=== PATIENT | female | born 1970 | race American Indian/Alaskan Native ===

== ENCOUNTER 2017-04-25 06:29 | Day surgery (SDC) | payer BC ==
[~2017-04-25 06:29] MED LIST: NACL 0.9% IR ONE
[2017-04-25] MEDS ORDERED: DILAUDID ONE (07:32)
[2017-04-25] MEDS ORDERED: XYLOCAINE MPF 2% ONE (07:32)
[2017-04-25] MEDS ORDERED: DIPRIVAN 10 MG/ML IV ONE (07:32)
--- NOTE | 2017-04-25 08:05 | Discharge Summary ---
Short Stay Discharge Plan Activity: no restrictions Weight Bearing Status: Full Weight Bearing Diet: regular Wound: remove dressing (72hrs.) Follow up with: PRIMARY CARE, [Primary Care Provider] - 7 Days
[2017-04-25] MEDS ORDERED: PEPCID IV NR (08:07)
[2017-04-25] MEDS ORDERED: VERSED IV NR (08:07)
[2017-04-25] MEDS ORDERED: LACTATED RINGERS 1,000 ML IV SCH (08:07)
--- NOTE | 2017-04-25 08:07 | Short Stay Summary ---
Short Stay Documentation Date of service: 04/25/17 - Allergies and Medications Current Medications: Allergies No Known Allergies Allergy (Unverified 04/19/17 14:25) Home Medications Medication Instructions Recorded Confirmed Last Taken Type No Known Home Medications [No 04/19/17 04/19/17 Unknown History Reported Home Medications] - Brief post op/procedure progress note Date of procedure: 04/25/17 Pre-op diagnosis: s/p LT Ear Amputation and Retroauricular Tube Flap Reconstruction Post-op diagnosis: same Procedure: Division and Inset of LT Ear Retroauricular Tube Graft Anesthesia: GETA Surgeon: KACI JIMENEZ JR Estimated blood loss: minimal Specimen disposition: to lab Condition: stable - Disposition Condition at discharge: Good Disposition: DC-01 TO HOME OR SELFCARE Short Stay Discharge Plan Follow up with: PRIMARY CARE, [Primary Care Provider] - 7 Days
--- NOTE | 2017-04-25 08:07 | Anesthesia Consultation ---
Anesthesia Consult and Med Hx Date of service: 04/25/17 - Airway Anesthetic Teeth Evaluation: Good ROM Head & Neck: Adequate Mental/Hyoid Distance: Adequate Mallampati Class: Class I Intubation Access Assessment: Good - Pulmonary Exam CTA: Yes - Cardiac Exam Cardiac Exam: RRR - Pre-Operative Health Status ASA Pre-Surgery Classification: ASA2 Proposed Anesthetic Plan: General - Pulmonary Hx Smoking: No Hx Sleep Apnea: No - Cardiovascular System Hx Hypertension: Yes (FOR 15 YRS, NO MEDS X 1 MTH) - Central Nervous System Hx Psychiatric Problems: No - Hematic Hx Anemia: Yes - Other Systems Hx Cancer: No
--- NOTE | 2017-04-25 08:07 | Anesthesia Day of Surgery ---
Anesthesia Day of Surgery - Day of Surgery Patient Examined: Yes Patient H&P Reviewed: Yes Patient is NPO: Yes
[2017-04-25] MEDS ORDERED: MARCAINE 0.5% 30 ML INFILTRATI ONE (08:09)
[2017-04-25] MEDS ORDERED: XYLOCAINE 1%/ EPI 1:100,000 INFILTRATI ONE (08:09)
[2017-04-25 08:13] LABS: Hematocrit 28.7 % (30.3-42.9); Hemoglobin 9.4 gm/dl (10.1-14.3); Mean Corpuscular HGB Conc 33 % (30-34); Mean Corpuscular Volume 79 fl (79-97); Platelet Count 211 K/mm3 (140-440); Red Blood Count 3.64 M/mm3 (3.65-5.03); Red Cell Distribution Width 15.7 % (13.2-15.2); White Blood Count 4.9 K/mm3 (4.5-11.0)
[2017-04-25 08:15] LABS: Mean Corpuscular Hemoglobin 26 pg (28-32)
[2017-04-25] MEDS ORDERED: MARCAINE 0.5% INFILTRATI ONE (08:32)
[2017-04-25] MEDS ORDERED: XYLOCAINE/EPI 1% 1:50,000 (OR) INFILTRATI ONE (08:32)
[2017-04-25] MEDS ORDERED: NACL 0.9% IR ONE (08:32)
[2017-04-25 09:35] VITALS: BP 149/96
[2017-04-25] MEDS ORDERED: ANCEF/STERILE WATER 2 GM/20 ML IV NR (11:00)
--- NOTE | 2017-04-25 16:44 | Operative Report ---
Operative Report Operative Report: 04/25/17 Preoperative diagnosis: Left acquired ear deformity Status post left retroauricular tubed pedicle flap Postoperative diagnosis: Same Procedure: Division and inset of left retroauricular tubed pedicle flap Surgeon: Eliazar Cheek M.D. Description of procedure: Patient was brought into the operating room placed on table in supine position, administration of IV sedation and local anesthesia the left ear was prepped with a Betadine solution and draped in the usual sterile manner. #15 blade scalpel was used to incise the flap at its base followed by undermining with closure of the donor defect and inset of the flap across the posterior aspect of the ear closure which were performed with interrupted 4-0 Monocryl sutures and running 5-0 proline sutures and steri-strips sterile dressings applied patient tolerated procedure well and returned to recovery room in stable condition. Eliazar Cheek M.D.
== END 2017-04-25 10:15 | disposition home or self-care (01) ==
LOC: OR 06:29 → EDBD 13:30
PROVIDERS: ATTEND Plastic Surgery
DX: H61.112 Acquired deformity of pinna, left ear (principal); I10 Essential (primary) hypertension; D64.9 Anemia, unspecified; Z79.899 Other long term (current) drug therapy; Z98.890 Other specified postprocedural states; Z82.49 Family history of ischemic heart disease and other diseases of the circulatory system
CPT/HCPCS: 15630; 36415; 81025; 85027; J1170; J2250; J2704; J7120

== ENCOUNTER 2017-09-11 06:59 | Inpatient (IN) | payer BC ==
[2017-09-11 08:41] LABS: INR 0.91 (0.87-1.13)
--- NOTE | 2017-09-11 08:58 | Emergency Department Report ---
ED Female HPI - General Chief complaint: Recheck/Abnormal Lab/Rx Stated complaint: vag bleed since jun; sep h/h Time Seen by Provider: 09/11/17 08:05 Source: patient, family, RN notes reviewed, old records reviewed Mode of arrival: Ambulatory Limitations: No Limitations - History of Present Illness MD Complaint: vaginal bleeding -: Gradual, month(s) Radiation: non-radiating Severity: mild Quality: cramping (at times) Consistency: constant Improves with: none Worsens with: menstrual period (inc flow; sat many pads per hours) Are you Now?: No (dub since jun) Associated Symptoms: vaginal bleeding, abdominal pain (just menst cramps at times). denies: nausea/vomiting, fever/chills, headaches, loss of appetite, dysuria, hematuria, rash, seizure, shortness of breath, syncope, weakness - Related Data Sexually active: Yes Home Medications Medication Instructions Recorded Confirmed Last Taken No Known Home Medications [No 04/19/17 04/19/17 Unknown Reported Home Medications] Allergies Allergy/AdvReac Type Severity Reaction Status Date / Time No Known Allergies Allergy Unverified 04/19/17 14:25 ED Review of Systems ROS: Stated complaint: SOB, DIZZINESS, BACK PAIN Other details as noted in HPI Comment: All other systems reviewed and negative Constitutional: no symptoms reported, weakness Eyes: as per HPI ENT: as per HPI Respiratory: no symptoms reported. denies: shortness of breath Cardiovascular: as per HPI. denies: chest pain Endocrine: no symptoms reported Gastrointestinal: as per HPI. denies: nausea, vomiting Genitourinary: as per HPI, abnormal menses, other (pap 3-17). denies: urgency, dysuria Musculoskeletal: as per HPI Skin: as per HPI Neurological: as per HPI Psychiatric: as per HPI Hematological/Lymphatic: as per HPI ED Past Medical Hx - Past Medical History Previous Medical History?: Yes Hx Hypertension: Yes (was on bp meds during preg; did not need p that time) Hx HIV: No Additional medical history: mild anemia in jun now worsened- started ib fe - Surgical History Past Surgical History?: No - Family History Family history: no significant - Social History Smoking Status: Never Smoker Substance Use Type: None - Medications Home Medications: Home Medications Medication Instructions Recorded Confirmed Last Taken Type No Known Home Medications [No 04/19/17 04/19/17 Unknown History Reported Home Medications] ED Physical Exam - General Limitations: No Limitations, Other (weak) General appearance: alert - Head Head exam: Present: normocephalic - Eye Eye exam: Present: PERRL, EOMI - ENT ENT exam: Present: mucous membranes moist - Neck Neck exam: Present: normal inspection - Respiratory Respiratory exam: Present: normal lung sounds bilaterally - Cardiovascular Cardiovascular Exam: Present: regular rate, tachycardia - GI/Abdominal GI/Abdominal exam: Present: soft, normal bowel sounds. Absent: distended, tenderness, guarding, rebound, rigid, diminished bowel sounds, hyperactive bowel sounds, hypoactive bowel sounds, organomegaly, mass, bruit, pulsatile mass - Rectal Rectal exam: Present: deferred - Extremities Exam Extremities exam: Present: normal inspection, full ROM, normal capillary refill. Absent: tenderness, pedal edema - Back Exam Back exam: Present: normal inspection, full ROM. Absent: tenderness, CVA tenderness (R), CVA tenderness (L), muscle spasm - Neurological Exam Neurological exam: Present: alert, oriented X3, CN II-XII intact, normal gait, reflexes normal - Psychiatric Psychiatric exam: Present: normal affect, normal mood - Skin Skin exam: Present: warm, dry, intact, pallor ED Course Vital Signs 09/11/17 09/11/17 09/11/17 07:22 11:18 11:42 Temperature 97.8 F Pulse Rate 105 H Pulse Rate [ 88 Lying] Pulse Rate [ 92 H Sitting] Pulse Rate [ 88 Standing] Respiratory 16 20 Rate Blood Pressure 180/60 Blood Pressure 160/103 [Lying] Blood Pressure 176/101 [Sitting] Blood Pressure 172/111 [Standing] O2 Sat by Pulse 100 100 Oximetry 09/11/17 09/11/17 09/11/17 11:58 12:01 12:15 Temperature Pulse Rate 82 91 H Pulse Rate [ Lying] Pulse Rate [ Sitting] Pulse Rate [ Standing] Respiratory 12 21 18 Rate Blood Pressure 154/89 157/100 Blood Pressure [Lying] Blood Pressure [Sitting] Blood Pressure [Standing] O2 Sat by Pulse 100 100 Oximetry 09/11/17 09/11/17 09/11/17 12:31 13:09 13:15 Temperature Pulse Rate 88 80 83 Pulse Rate [ Lying] Pulse Rate [ Sitting] Pulse Rate [ Standing] Respiratory 13 18 11 L Rate Blood Pressure 161/102 161/102 161/102 Blood Pressure [Lying] Blood Pressure [Sitting] Blood Pressure [Standing] O2 Sat by Pulse 100 100 100 Oximetry 09/11/17 09/11/17 09/11/17 13:30 13:45 14:00 Temperature Pulse Rate 79 85 93 H Pulse Rate [ Lying] Pulse Rate [ Sitting] Pulse Rate [ Standing] Respiratory 18 16 16 Rate Blood Pressure 154/95 155/93 145/84 Blood Pressure [Lying] Blood Pressure [Sitting] Blood Pressure [Standing] O2 Sat by Pulse 100 100 100 Oximetry 09/11/17 09/11/17 09/11/17 14:03 14:15 14:18 Temperature 98.4 F 98.4 F Pulse Rate 84 76 76 Pulse Rate [ Lying] Pulse Rate [ Sitting] Pulse Rate [ Standing] Respiratory 16 13 13 Rate Blood Pressure 156/90 156/90 156/90 Blood Pressure [Lying] Blood Pressure [Sitting] Blood Pressure [Standing] O2 Sat by Pulse 100 100 100 Oximetry 09/11/17 09/11/17 09/11/17 14:30 14:45 14:48 Temperature 98.5 F Pulse Rate 75 74 74 Pulse Rate [ Lying] Pulse Rate [ Sitting] Pulse Rate [ Standing] Respiratory 17 17 17 Rate Blood Pressure 155/91 156/93 156/93 Blood Pressure [Lying] Blood Pressure [Sitting] Blood Pressure [Standing] O2 Sat by Pulse 100 100 100 Oximetry 09/11/17 09/11/17 09/11/17 15:00 15:30 16:00 Temperature Pulse Rate 76 74 73 Pulse Rate [ Lying] Pulse Rate [ Sitting] Pulse Rate [ Standing] Respiratory 15 15 12 Rate Blood Pressure 154/88 151/84 149/94 Blood Pressure [Lying] Blood Pressure [Sitting] Blood Pressure [Standing] O2 Sat by Pulse 100 100 100 Oximetry 09/11/17 09/11/17 09/11/17 16:11 16:26 16:30 Temperature 98.4 F 98.4 F Pulse Rate 76 74 78 Pulse Rate [ Lying] Pulse Rate [ Sitting] Pulse Rate [ Standing] Respiratory 18 14 14 Rate Blood Pressure 158/94 151/93 160/98 Blood Pressure [Lying] Blood Pressure [Sitting] Blood Pressure [Standing] O2 Sat by Pulse 100 100 100 Oximetry - Reevaluation(s) Reevaluation #1: 09/11/17 pt to er this am w inc in fatigue she has had dub since jun saw an ob in [place]. does not know the name. it is the one on our insurance here at [facility]. 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 last pap 3-17 m she had a dec h/h that in interviewing pt was stable until this past week when it dec her md told her shed need labs and blood but she felt so bad this weekend- before getting to her md at appnt 09-22 that she came to er no cp no sob only fatigue and weakness; body ache no daily meds no allergies saturating several pads per hour on some days. social hx no cig/etho/drugs psh tubal 1230 vs 162/98, hr 91; 100% ra, temp 98.2 pt states she had htn when preg not since she states she has white coat syndrome 09/11/17 1118 orthosstatic bp and hr noted hr stable bp systolic drops more than 10 despite her dec h/h she again states her bp always high when at md no cp no sob no hx cad seeming healthy female Reevaluation #2: 09/11/17 12:04 obgyn relationship mgr notified transfuse 2 U packed cells ? dc note labs trop neg no end organ failure no lvh likely will need admitted for symptomatic anemia per ED attending José Miguel 09/11/17 Dr Finley called back and updated on need to admit vs currently 155/90, hr [address] Finley concerned about bp management. Will discuss w hospitalist service. 09/11/[address] Yuliya Dwyer called Dr Bui and the pt will be admitted for active vag bleed and htn Nurses are giving blood per protocol and monitoring VS ED Medical Decision Making - Lab Data Result diagrams: 09/11/17 07:47 09/11/17 10:03 - Radiology Data Radiology results: report reviewed - Medical Decision Making see note dub since jun now worsening s/s - Differential Diagnosis dub w or wo anemia ? etio Critical care attestation.: If time is entered above; I have spent that time in minutes in the direct care of this critically ill patient, excluding procedure time. ED Disposition Clinical Impression: Symptomatic anemia, DUB (dysfunctional uterine bleeding), Fibroid, Elevated blood pressure reading Disposition: OP ADMIT IP TO THIS HOSP Is pt being admited?: Yes Does the pt Need Aspirin: No Condition: Stable Time of Disposition: 12:05
[2017-09-11 09:46] LABS: Bilirubin,Urine NEG (Negative); Blood,Urine NEG (Negative); Ketones,Urine NEG (Negative); Leukocyte Esterase,Urine NEG (Negative); Nitrite,Urine NEG (Negative); Protein,Urine <15 mg/dL mg/dL (Negative); RBC,Urine < 1.0 /HPF (0.0-6.0); Urobilinogen,Urine < 2.0 mg/dL (<2.0); WBC,Urine < 1.0 /HPF (0.0-6.0)
[2017-09-11 10:16] LABS: Alanine Aminotransferase 38 units/L (7-56); Albumin 4.3 g/dL (3.9-5); Albumin/Globulin Ratio 1.5 %; Alkaline Phosphatase 54 units/L (35-129); Anion Gap 18 mmol/L; BUN/Creatinine Ratio 14; Blood Urea Nitrogen 13 mg/dL (7-17); Calcium 8.8 mg/dL (8.4-10.2); Carbon Dioxide 24 mmol/L (22-30); Chloride 105.3 mmol/L (98-107); Glucose 80 mg/dL (65-100); Potassium 4.1 mmol/L (3.6-5.0); Sodium 143 mmol/L (137-145); Total Protein 7.1 g/dL (6.3-8.2)
[2017-09-11 10:33] LABS: Basophils % (Auto) 0.5 % (0.0-1.8); Eosinophils % (Auto) 1.8 % (0.0-4.3); Hematocrit 22.6 % (30.3-42.9); Hemoglobin 6.9 gm/dl (10.1-14.3); Mean Corpuscular HGB Conc 31 % (30-34); Mean Corpuscular Volume 71 fl (79-97); Platelet Count 245 K/mm3 (140-440); Red Blood Count 3.19 M/mm3 (3.65-5.03); White Blood Count 4.6 K/mm3 (4.5-11.0)
[2017-09-11 10:36] LABS: Mean Corpuscular Hemoglobin 22 pg (28-32); Red Cell Distribution Width 21.3 % (13.2-15.2)
[2017-09-11] MEDS ORDERED: NACL 0.9% 500 ML 500 ML IV ONE (11:20)
[2017-09-11 12:16] LABS: Iron 181 ug/dL (37-170); Total Iron Binding Capacity 384 mcg/dL (250-450)
--- NOTE | 2017-09-11 13:19 | Ultrasound Report ---
ULTRASOUND PELVIC COMPLETE ULTRASOUND TRANSVAGINAL HISTORY: Dysfunctional uterine bleeding. COMPARISON: None. TECHNIQUE: Transabdominal and transvaginal ultrasound with color doppler interrogation. FINDINGS: Uterus: The uterus is anteverted. The uterus measures 11.5 x 10.0 x 9.7 cm. At least 4 uterine fibroids are identified. A large submucosal fibroid in the anterior wall measures up to 6.9 cm. An intramural fibroid in the posterior wall measures 3.8 cm. 2 intramural fibroids in the right lateral wall measures 3.7 cm and 3.3 cm. Endometrium: The endometrium is poorly imaged secondary to displacement by the large anterior submucosal fibroid. No endometrial thickening is suspected. Right ovary: Not visualized. Left ovary: Not visualized. No pelvic fluid or mass is identified. Normal color doppler interrogation. IMPRESSION: Uterine fibroid disease as described.
--- NOTE | 2017-09-11 14:27 | Event Note ---
Date: 09/11/17 Spoke with INSTALLER APPRENTICE and was going to admit to mother /baby however, I was not informed about pt elevated BPs with initial conversation about the patient. Review of chart shows anemia but also that Bps are persistently in what I consider a severe range(160/105) and management is outside the scope of obgyn especially in the face of a patient without a history of hypertension or previously on meds, unless pt is . In light of not having a history of hypertension, I felt pt should be admitted by medicine team and I will see pt as a client care consultant regarding her menorrhagia as the elevated blood pressures are more pressing at this time. As per her chart, she has a laborer sawmill with f/u appointment scheduled and is currently being worked up as an outpt for the vaginal bleeding. I will evaluate pt once consult is placed and pt is on the floor.
--- NOTE | 2017-09-11 17:18 | Consultation ---
History of Present Illness Consult date: 09/11/17 Requesting physician: OMAR MICHELLE Reason for consult: menorrhagia, other (fibroids, anemia) History of present illness: Pt with h/o menorrhagia for several months presents c/o fatigue and was told her iron levels were low and she needed follow up. she states she saw a digital commentator in December and had sonogram at this time and does not remember being told anything was wrong. Pt advised that she has several large fibroids. Treatment options were d/w pt. Pt desires definitive therapy in the form of a hyst. Pt advised that she is going to have to follow up out pt for completion of her work up ie embx prior to scheduling the procedure. Pt expressed understanding and has an appointment on 09/22/17 with a digital commentator for evalution. Pt also noted to have elevated blood pressures. She states she does not have h/o hypertension and only has iron tablets. She attributes it to being nervous speaking with the providers but her bps are in the severe ranges. It is for his reason she has been admitted to the hospitalist service. 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: denies: abnormal PAP smear, cancer, chlamydia, gonorrhea Social history: no significant social history - Obstetrical History : 3 Number of Living Children: 3 Medications and Allergies Allergies Allergy/AdvReac Type Severity Reaction Status Date / Time No Known Allergies Allergy Unverified 04/19/17 14:25 Home Medications Medication Instructions Recorded Confirmed Last Taken Type No Known Home Medications [No 04/19/17 04/19/17 Unknown History Reported Home Medications] Active Meds: Active Medications Sodium Chloride (Nacl 0.9% 1000 Ml) 1,000 mls @ 25 mls/hr IV DIRECT KATYA Review of Systems All systems: negative - Vital Signs Vital signs: Vital Signs Temp Pulse Resp BP Pulse Ox 97.8 F 105 H 16 180/60 100 09/11/17 07:22 09/11/17 07:22 09/11/17 07:22 09/11/17 07:22 09/11/17 07:22 Temp Pulse Resp BP Pulse Ox 97.7 F 83 13 172/97 100 09/11/17 16:56 09/11/17 16:56 09/11/17 16:56 09/11/17 16:56 09/11/17 16:56 - Physical Exam Cardiovascular: Normal S1, Normal S2 Lungs: Positive: Normal air movement Abdomen: Positive: normal appearance, soft. Negative: distention, tenderness Genitourinary (Female): Positive: other (deferred as pt has just had pelvic sono and does not report bleeding heavy at this time) Results Result Diagrams: 09/11/17 07:47 09/11/17 10:03 Abnormal lab results 09/11/17 09/11/17 09/11/17 Range/Units 07:47 10:03 11:41 RBC 3.19 L (3.65-5.03) M/mm3 Hgb 6.9 L (10.1-14.3) gm/dl Hct 22.6 L (30.3-42.9) % MCV 71 L (79-97) fl MCH 22 L (28-32) pg RDW 21.3 H (13.2-15.2) % [place] % (Auto) 8.7 H (0.0-7.3) % Iron (37-170) ug/dL AST 44 H (5-40) units/L Crossmatch See Detail 09/11/17 Range/Units 11:42 RBC (3.65-5.03) M/mm3 Hgb (10.1-14.3) gm/dl Hct (30.3-42.9) % MCV (79-97) fl MCH (28-32) pg RDW (13.2-15.2) % [place] % (Auto) (0.0-7.3) % Iron 181 H (37-170) ug/dL AST (5-40) units/L Crossmatch All other labs normal. Assessment and Plan - Patient Problems (1) Menorrhagia Current Visit: Yes Status: Acute Plan to address problem: -due to fibroids -f/u out pt for complete work up(Ie embx needed with possible SIS) -Pt has an appointment on 09/22/17 @ 915am with this practice with Dr. Bhatti -can d/c home after getting blood if stable from medical standpoint as she has f /u scheduled. -would hold on meds at this time as she is not currently bleeding heavily and she has f/u appointment. (2) Elevated blood pressure reading Current Visit: Yes Status: Acute Plan to address problem: -recommendations as per medicine team (3) Fibroid Current Visit: Yes Status: Acute Qualifiers: Uterine leiomyoma location: intramural and submucous Qualified Code(s): D25.1 - Intramural leiomyoma of uterus; D25.0 - Submucous leiomyoma of uterus; D25.0 - Submucous leiomyoma of uterus Plan to address problem: -treatment options were d/w pt. She desires hyst at this time. She currently does not have heavy bleeding. Apt scheduled with Dr. Bhatti on 09/22/17 for outpt management of the fibroids and bleeding. All questions were addressed and answered. -cleared for d/c home after transfusion from digital commentator standpoint. (4) Symptomatic anemia Current Visit: Yes Status: Acute
--- NOTE | 2017-09-11 18:06 | History and Physical Report ---
History of Present Illness Date of examination: 09/11/17 Date of admission: 09/11/17 13:25 Chief complaint: My Blood count is low History of present illness: 47-year-old -[place] female with no significant past medical history presented to emergency department for complaints of her blood count is low. Patient has blood work on and she got a call from her doctor on Tuesday and told her blood count was low and told to have a transfusion. But she was reluctant to get blood. She came this morning to work and she started feeling tired and weak then she decided to go to emergency Department. Patient denied chest pain, leg swelling, palpitation. Patient has high blood pressure in the emergency department, but the patient said her blood pressure is high only when she was seen by health care worker. Her BP was normal at home. Patient claimed her menses is heavy. REVIEW OF SYSTEMS: GENERAL: no weight change, no fatigue, no fever HEAD: no head ache EYES: no blurry vision, no acute visual loss EARS: no hearing loss, no discharge, no earache NOSE: no stuffiness, no sneezing, no discharge MOUTH, THROAT AND NECK: no bleeding gums, no sore throat, no swollen neck CARDIAC: no palpitations, no dyspnea on exertion, no orthopnea, no PND, no edema , no chest pain RESPIRATORY: no shortness of breath, no wheeze, no cough, no sputum, no hemoptysis, no asthma GI: no decreased appetite, no nausea, no vomiting, no dysphagia, no diarrhea, no constipation, no abdominal pain URINARY: no change in frequency, no urgency, no polyuria, no hematuria, no incontinence MUSCULOSKELETAL: no muscle weakness, no pain, no joint stiffness NEUROLOGIC: no loss of sensation/numbness, no tingling, no tremors, no weakness/ paralysis HEMATOLOGIC: Vaginal bleeding. SKIN: no rashes ENDOCRINE: no heat/cold intolerance, no polyuria, no polydipsia, no thyroid problems, no diabetes PSYCHIATRIC: no anxiety, no depression, no suicidal ideations Past History Past Medical History: hypertension Past Surgical History: Other (Bilateral Tubal ligation ) Social history: no significant social history, full code. denies: smoking, alcohol abuse, prescription drug abuse, IV drug use Family history: no significant family history Medications and Allergies Allergies Allergy/AdvReac Type Severity Reaction Status Date / Time No Known Allergies Allergy Unverified 04/19/17 14:25 Home Medications Medication Instructions Recorded Confirmed Last Taken Type No Known Home Medications [No 04/19/17 04/19/17 Unknown History Reported Home Medications] Active Meds: Active Medications Sodium Chloride (Nacl 0.9% 1000 Ml) 1,000 mls @ 25 mls/hr IV DIRECT KATYA Exam - Physical Exam Narrative exam: Not in cardiopulmonary distress. The patient appeared well nourished and normally developed. Vital signs as documented. Head exam is unremarkable. No scleral icterus . Neck is without jugular venous distension, thyromegaly, or carotid bruits. Lungs are clear to auscultation. Cardiac exam reveals regular rate and Rhythm. First and second heart sounds normal. No murmurs, rubs or gallops. Abdominal exam reveals normal bowel sounds, no masses, no organomegaly and no aortic enlargement. Extremities are nonedematous and both femoral and pedal pulses are normal. 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 No focal weakness. - Constitutional Vitals: Temp Pulse Resp BP Pulse Ox 97.7 F 83 13 172/97 100 09/11/17 16:56 09/11/17 17:00 09/11/17 17:00 09/11/17 17:00 09/11/17 17:00 Results - Labs CBC & Chem 7: 09/11/17 07:47 09/11/17 10:03 Labs: Laboratory Last Values WBC 4.6 K/mm3 (4.5-11.0) 09/11/17 07:47 RBC 3.19 M/mm3 (3.65-5.03) L 09/11/17 07:47 Hgb 6.9 gm/dl (10.1-14.3) L 09/11/17 07:47 Hct 22.6 % (30.3-42.9) L 09/11/17 07:47 MCV 71 fl (79-97) L 09/11/17 07:47 MCH 22 pg (28-32) L 09/11/17 07:47 MCHC 31 % (30-34) 09/11/17 07:47 RDW 21.3 % (13.2-15.2) H 09/11/17 07:47 Plt Count 245 K/mm3 (140-440) 09/11/17 07:47 Lymph % (Auto) 34.1 % (13.4-35.0) 09/11/17 07:47 Story % (Auto) 8.7 % (0.0-7.3) H 09/11/17 07:47 Eos % (Auto) 1.8 % (0.0-4.3) 09/11/17 07:47 Baso % (Auto) 0.5 % (0.0-1.8) 09/11/17 07:47 Lymph # 1.6 K/mm3 (1.2-5.4) 09/11/17 07:47 Story # 0.4 K/mm3 (0.0-0.8) 09/11/17 07:47 Eos # 0.1 K/mm3 (0.0-0.4) 09/11/17 07:47 Baso # 0.0 K/mm3 (0.0-0.1) 09/11/17 07:47 Seg Neutrophils % 54.9 % (40.0-70.0) 09/11/17 07:47 Seg Neutrophils # 2.5 K/mm3 (1.8-7.7) 09/11/17 07:47 PT 12.7 Sec. (12.2-14.9) 09/11/17 07:47 INR 0.91 (0.87-1.13) 09/11/17 07:47 APTT 28.0 Sec. (24.2-36.6) 09/11/17 07:47 Sodium 143 mmol/L (137-145) 09/11/17 10:03 Potassium 4.1 mmol/L (3.6-5.0) 09/11/17 10:03 Chloride 105.3 mmol/L (98-107) 09/11/17 10:03 Carbon Dioxide 24 mmol/L (22-30) 09/11/17 10:03 Anion Gap 18 mmol/L 09/11/17 10:03 BUN 13 mg/dL (7-17) 09/11/17 10:03 Creatinine 0.9 mg/dL (0.7-1.2) 09/11/17 10:03 Estimated GFR > 60 ml/min 09/11/17 10:03 BUN/Creatinine Ratio 14 % 09/11/17 10:03 Glucose 80 mg/dL (65-100) 09/11/17 10:03 Calcium 8.8 mg/dL (8.4-10.2) 09/11/17 10:03 Iron 181 ug/dL (37-170) H 09/11/17 11:42 TIBC 384 mcg/dL (250-450) 09/11/17 11:42 Total Bilirubin 0.30 mg/dL (0.1-1.2) 09/11/17 10:03 AST 44 units/L (5-40) H 09/11/17 10:03 ALT 38 units/L (7-56) 09/11/17 10:03 Alkaline Phosphatase 54 units/L (35-129) 09/11/17 10:03 Troponin T < 0.010 ng/mL (0.00-0.029) 09/11/17 11:42 Total Protein 7.1 g/dL (6.3-8.2) 09/11/17 10:03 Albumin 4.3 g/dL (3.9-5) 09/11/17 10:03 Albumin/Globulin Ratio 1.5 % 09/11/17 10:03 HCG, Qual Negative (Negative) 09/11/17 08:37 Urine Color Straw (Yellow) 09/11/17 09:38 Urine Turbidity Clear (Clear) 09/11/17 09:38 Urine pH 7.0 (5.0-7.0) 09/11/17 09:38 Ur Specific [place] 1.004 (1.003-1.030) 09/11/17 09:38 Urine Protein <15 mg/dl mg/dL (Negative) 09/11/17 09:38 Urine Glucose (UA) Neg mg/dL (Negative) 09/11/17 09:38 Urine Ketones Neg mg/dL (Negative) 09/11/17 09:38 Urine Blood Neg (Negative) 09/11/17 09:38 Urine Nitrite Neg (Negative) 09/11/17 09:38 Urine Bilirubin Neg (Negative) 09/11/17 09:38 Urine Urobilinogen < 2.0 mg/dL (<2.0) 09/11/17 09:38 Ur Leukocyte Esterase Neg (Negative) 09/11/17 09:38 Urine WBC (Auto) < 1.0 /HPF (0.0-6.0) 09/11/17 09:38 Urine RBC (Auto) < 1.0 /HPF (0.0-6.0) 09/11/17 09:38 Blood Type O POSITIVE 09/11/17 11:41 Antibody Screen Negative 09/11/17 11:41 Crossmatch See Detail 09/11/17 11:41 - Imaging and Cardiology Imaging and Cardiology: Transvaginal ultrasound, pelvic ultrasound: Fibroids Assessment and Plan Assessment and plan: Symptomatic anemia - We'll transfuse 2 units of blood - Check posttransfusion H&H Vagina bleeding secondary to fibroids - GEOCHEMICAL MANAGER consulted Hypertensive urgency - When necessary hydralazine - Patient needs to be started on antihypertensives DVT prophylaxis - SCDs because of vaginal bleeding Disposition - Admit to [facility] for Advance Directives: Yes VTE prophylaxis?: Mechanical Reason for no VTE Prophylaxis: Bleeding Plan of care discussed with patient/family: Yes
[2017-09-11] MEDS: NACL 0.9% 1000 ML 1,000 ML IV SCH ×2 (18:31→22:08)
[2017-09-11 19:44] LABS: Hematocrit 30.1 % (30.3-42.9); Hemoglobin 9.6 gm/dl (10.1-14.3); Mean Corpuscular HGB Conc 32 % (30-34); Mean Corpuscular Volume 75 fl (79-97); Platelet Count 216 K/mm3 (140-440); Red Blood Count 4.01 M/mm3 (3.65-5.03); White Blood Count 7.2 K/mm3 (4.5-11.0)
[2017-09-11 20:00] LABS: Mean Corpuscular Hemoglobin 24 pg (28-32)
[2017-09-12 06:05] LABS: Basophils % (Auto) 0.6 % (0.0-1.8); Eosinophils % (Auto) 3.1 % (0.0-4.3); Hematocrit 30.4 % (30.3-42.9); Hemoglobin 9.7 gm/dl (10.1-14.3); Mean Corpuscular HGB Conc 32 % (30-34); Mean Corpuscular Volume 76 fl (79-97); Platelet Count 231 K/mm3 (140-440); Red Blood Count 4.01 M/mm3 (3.65-5.03); White Blood Count 6.1 K/mm3 (4.5-11.0)
[2017-09-12 06:15] LABS: Mean Corpuscular Hemoglobin 24 pg (28-32); Red Cell Distribution Width 22.9 % (13.2-15.2)
[2017-09-12 06:25] LABS: Anion Gap 16 mmol/L; BUN/Creatinine Ratio 13; Blood Urea Nitrogen 12 mg/dL (7-17); Calcium 8.3 mg/dL (8.4-10.2); Carbon Dioxide 23 mmol/L (22-30); Chloride 103.6 mmol/L (98-107); Glucose 86 mg/dL (65-100); Sodium 139 mmol/L (137-145)
[2017-09-12 11:26] VITALS: BP 155/90
--- NOTE | 2017-09-12 13:24 | Discharge Summary ---
Providers - Providers Date of Admission: 09/11/17 13:25 Date of discharge: 09/12/17 Attending physician: PAULA BILLS MD 09/11/17 14:37 Consult to Physician [CONS] Urgent Consulting Provider: CATA PÉREZ Reason For Exam: DUB Anemia Place consult to:: INSTRUCTION LIBRARIAN Notified:: yes Primary care physician: CLINICAL LAW PROFESSOR Hospitalization Reason for admission: Symptomatic anemia Condition: Stable Hospital course: Patient is a 47-year-old -[place] female with no significant past medical history presented to emergency department for complaints vaginal bleeding, abdominal pain. patient found to have low H&H 6.9/22.6. Patient diagnosed with diagnosed with Symptomatic anemia, Vagina bleeding secondary to fibroids, and Increased in blood pressure. She was transfused 2 units of PRBC. Patient H& H currently improved. She is being discharged on oral iron. Patient advised to follow up INSTRUCTION LIBRARIAN for possible hysterectomy. Patient clinically improved and stable for discharge. Patient was advised to follow up with her primary care within a week of discharge to recheck her blood pressure. Discharge Diagnosed Symptomatic anemia due to vaginal bleeding Vagina bleeding secondary to fibroids Increased in blood pressure due to anxiety Disposition: DC-01 TO HOME OR SELFCARE Time spent for discharge: 33 minutes Core Measure Documentation - Palliative Care Palliative Care/ Comfort Measures: Not Applicable - Core Measures Any of the following diagnoses?: none Exam - Constitutional Vitals: Temp Pulse Resp BP Pulse Ox 98.8 F 86 16 155/90 100 09/12/17 09:00 09/12/17 09:00 09/12/17 09:00 09/12/17 09:00 09/12/17 09:00 General appearance: Present: no acute distress - EENT Eyes: Present: PERRL ENT: hearing intact - Neck Neck: Present: supple - Respiratory Respiratory effort: normal Respiratory: bilateral: CTA - Cardiovascular Rhythm: regular Heart Sounds: Present: S1 & S2 - Abdominal General gastrointestinal: Present: soft, non-tender Female genitourinary: Present: deferred - Rectal Rectal Exam: deferred - Integumentary Integumentary: Present: clear, warm, dry - Musculoskeletal Musculoskeletal: strength equal bilaterally - Psychiatric Psychiatric: appropriate mood/affect - Neurologic Neurologic: moves all extremities - Allied Health Allied health notes reviewed: nursing Plan Diet: low fat, low cholesterol, low salt Follow up with: PRIMARY CAREMD [Primary Care Provider] - 3-5 Days Prescriptions: Ferrous Gluconate 324 mg PO BID #60 tablet
== END 2017-09-12 14:55 | disposition home or self-care (01) | DRG 305 ==
LOC: ED 06:59 → 3A 13:25
PROVIDERS: ADMIT Obstetrics & Gynecology; ATTEND Internal Medicine
PROC: 30233N1 Transfusion of Nonautologous Red Blood Cells into Peripheral Vein, Percutaneous Approach (ICD-10-PCS; principal; 2017-09-11)
DX: I16.0 Hypertensive urgency (principal); D25.9 Leiomyoma of uterus, unspecified; D50.0 Iron deficiency anemia secondary to blood loss (chronic); Z98.51 Tubal ligation status; F41.9 Anxiety disorder, unspecified
CPT/HCPCS: 36415; 76830; 76856; 80048; 80053; 81001; 83550; 84484; 84703; 85025; 85027; 85610; 85730; 86850; 86900; 86901; 86920; 93005; 93010; 99285; J7030; J7040; P9016